=== PATIENT | male | born 1980 | race African-American/Black ===

== ENCOUNTER 2017-11-22 23:22 | Emergency (ER) | payer OTHER ==
[~2017-11-22] VITALS: Ht 170.2 cm; Wt 69.7 kg
[~2017-11-22 23:22] MED LIST: CARAFATE1 GM PO; COLACE100 MG PO; COMPAZINE10 MG PO; FEOSOL325 MG PO; FLINTSTONES GU1 EACH PO; Feosol PO; GABAPENTIN PO; GABAPENTIN100 MG PO; GLUCOPHAGE1000 MG PO; GLUCOPHAGE500 MG PO; HUMALOG100 UNIT/1 SC; INVanz IV; LANTUS 3 M100 UNITS1 SC; LEVEMIR100 UNIT/2 SC; LYRICA50 MG PO; Lovenox SC; MOTRIN400 MG PO; NACL IV; NO HOME MEDS; NOVOLIN R SC; NOVOLIN,HU100 UNITS1 SC; NOVOLOG 10100 UNITS/ SC; Neurontin PO; OXYCODONE HCL10 MG PO; PERCOCET 10/1 TABLET PO; PERCOCET 5/31 TABLET PO; PRILOSEC20 MG PO; PROVENTIL,2.5 MG/3 M IH; REGLAN5 MG PO; UNABLE TO COMPLETE; Zantac PO; [UNRECOGNIZED DRUG - OTHER] IV; ~No Medications
[2017-11-23 03:08] VITALS: BP 95/60
== END 2017-11-23 03:10 | disposition home or self-care (01) ==
LOC: EME → EDBD 23:22 → EME 11-23 03:10
PROC: 3E0234Z Introduction of Serum, Toxoid and Vaccine into Muscle, Percutaneous Approach (ICD-10-PCS; principal; 2017-11-22)
DX: F10.129 Alcohol abuse with intoxication, unspecified (principal); S02.92XA Unspecified fracture of facial bones, initial encounter for closed fracture; M62.838 Other muscle spasm; S00.83XA Contusion of other part of head, initial encounter; Y08.02XA Assault by strike by baseball bat, initial encounter; Y07.11 Biological father, perpetrator of maltreatment and neglect; Y07.410 Brother, perpetrator of maltreatment and neglect; Z23 Encounter for immunization; I10 Essential (primary) hypertension; K21.9 Gastro-esophageal reflux disease without esophagitis; E11.9 Type 2 diabetes mellitus without complications; Z79.4 Long term (current) use of insulin; F32.9 Major depressive disorder, single episode, unspecified; F17.200 Nicotine dependence, unspecified, uncomplicated; Z86.73 Personal history of transient ischemic attack (TIA), and cerebral infarction without residual deficits; Z90.49 Acquired absence of other specified parts of digestive tract; Z88.5 Allergy status to narcotic agent
CPT/HCPCS: 70450; 70486; 72125; 73130; 99281; 99284